=== PATIENT | female | born 1965 | race African-American/Black ===

== ENCOUNTER 2021-09-30 16:08 | Inpatient (IN) ==
[2021-09-30] MEDS ORDERED: ALBUTEROL 2.5 MG/3 ML NEB RESP TX PRN (17:01)
[2021-09-30] MEDS ORDERED: GLUCAGON 1 MG VIAL IM PRN (17:01)
[2021-09-30] MEDS ORDERED: DEXTROSE 50% 25 GM/50 ML SYRINGE IV PRN (17:09)
[2021-09-30 18:07] LABS: Basophils % 0.1 % (0.0-0.8); Hematocrit 40.8 VOL% (35.7-47.0); Hemoglobin 12.2 GM/DL (12.0-16.0); Immature Granulocytes % 1.1 %; Immature Granulocytes Absolute 0.08 #; Lymphocytes # 1.1 10*3/uL (1.4-4.0); Lymphocytes % 14.4 % (21.3-54.2); Mean Corpuscular HGB Conc 29.9 GM/DL (32-36); Mean Corpuscular Volume 86.6 FL (87-102); Mean Platelet Volume 9.7 FL (9.6-12.0); Monocytes % 6.2 % (1.7-12.7); NRBC # 0.28 10*3/uL; Neutrophils % 78.2 % (38.7-73.9); Platelet Count 136 T/CUMM (130-400); Red Blood Count 4.71 MC/CUMM (3.8-5.5); Red Cell Distribution Width 18.6 % (9.3-17.3); White Blood Count 7.6 T/CUMM (4-12)
[2021-09-30 18:16] LABS: Albumin 2.8 G/DL (3.4-5.0); Bilirubin,Total 1.2 MG/DL (0.20-1.00); Calcium 8.1 MG/DL (8.5-10.1); Osmolality,Calculated 286.1 MOS/KG (273-304); Potassium 4.7 MMOL/L (3.5-5.1); Total Protein 7.2 G/DL (6.4-8.2)
[2021-09-30 18:48] LABS: Anisocytosis 2+; Platelet Estimate Adequate; Polychromasia Few
[2021-09-30] MEDS: FAMOTIDINE 20 MG/2 ML VIAL IV SCH (19:25)
[2021-09-30] MEDS: ENOXAPARIN 60 MG/0.6 ML SYRINGE SUBCUT SCH (19:25)
[2021-09-30] MEDS: cefTRIAXone 1,000 MG in SODIUM CHLORIDE 0.9% 100 ML IV SCH (19:25)
[2021-09-30] MEDS: POTASSIUM CHLORIDE 20 MEQ TABLET PO SCH ×2 (19:25→22:50)
[2021-09-30] MEDS: LACTATED RINGERS 1,000 ML IV SCH (19:25)
[2021-09-30] MEDS: MORPHINE 2 MG/1 ML SYRINGE IV PRN (19:44)
[2021-09-30 21:43] LABS: ABG Base Excess 5.7 MMOL/L (-2.5-2.5); ABG HCO3 29.4 MMOL/L (20-26); ABG Oxygen Saturation 88.9 % (95-100); ABG PCO2 55.9 MM HG (35-48); ABG PH 7.374 (7.35-7.45); ABG PO2 65.7 MM HG (80-95); ABG TCO2 29.1 MMOL/L (23-27)
[2021-09-30] MEDS: INSULIN LISPRO 100 UNIT/ML SUBCUT SCH (22:49)
[2021-10-01 00:31] LABS: ABG Base Excess 6.3 MMOL/L (-2.5-2.5); ABG HCO3 29.9 MMOL/L (20-26); ABG Oxygen Saturation 84.4 % (95-100); ABG PCO2 58.5 MM HG (35-48); ABG PH 7.367 (7.35-7.45)
[2021-10-01] MEDS: POTASSIUM CHLORIDE 20 MEQ TABLET PO SCH (02:41)
[2021-10-01] MEDS: LACTATED RINGERS 1,000 ML IV SCH ×2 (04:20→19:09)
[2021-10-01 05:00] LABS: ABG Base Excess 6.1 MMOL/L (-2.5-2.5); ABG HCO3 29.9 MMOL/L (20-26); ABG Oxygen Saturation 95.9 % (95-100); ABG PCO2 57.5 MM HG (35-48); ABG PH 7.369 (7.35-7.45); ABG PO2 92.9 MM HG (80-95); ABG TCO2 29.5 MMOL/L (23-27)
[2021-10-01] MEDS: ENOXAPARIN 60 MG/0.6 ML SYRINGE SUBCUT SCH ×2 (06:10→20:02)
[2021-10-01] MEDS: FAMOTIDINE 20 MG/2 ML VIAL IV SCH ×2 (06:10→20:18)
[2021-10-01] MEDS: INSULIN LISPRO 100 UNIT/ML SUBCUT SCH ×4 (08:49→21:00)
[2021-10-01 09:03] LABS: Basophils % 0.1 % (0.0-0.8); Eosinophils % 0.1 % (0.00-10.9); Immature Granulocytes % 0.8 %; Immature Granulocytes Absolute 0.06 #; Lymphocytes % 11.9 % (21.3-54.2); Mean Corpuscular HGB Conc 29.3 GM/DL (32-36); Mean Corpuscular Volume 88.2 FL (87-102); Monocytes % 5.8 % (1.7-12.7); NRBC # 0.12 10*3/uL; Neutrophils % 81.3 % (38.7-73.9); Platelet Count 143 T/CUMM (130-400); Red Blood Count 4.65 MC/CUMM (3.8-5.5)
[2021-10-01 09:21] LABS: Calcium 8.4 MG/DL (8.5-10.1); Osmolality,Calculated 283.3 MOS/KG (273-304); Potassium 3.4 MMOL/L (3.5-5.1)
[2021-10-01] MEDS: DEXAMETHASONE 4 MG/1 ML VIAL IV SCH (11:00)
[2021-10-01] MEDS: ALPRAZolam 0.5 MG TABLET PO PRN (16:08)
[2021-10-01] MEDS ORDERED: REMDESIVIR 200 MG in SODIUM CHLORIDE 0.9% 210 ML IV ONE (20:00)
[2021-10-01] MEDS: cefTRIAXone 1,000 MG in SODIUM CHLORIDE 0.9% 100 ML IV SCH (20:18)
[2021-10-02 01:46] LABS: ABG Base Excess 6.5 MMOL/L (-2.5-2.5); ABG HCO3 30.3 MMOL/L (20-26); ABG Oxygen Saturation 95.2 % (95-100); ABG PCO2 48.4 MM HG (35-48); ABG PH 7.428 (7.35-7.45); ABG PO2 80.3 MM HG (80-95); ABG TCO2 28.5 MMOL/L (23-27)
[2021-10-02] MEDS ORDERED: LORazepam 2 MG/1 ML VIAL ONE (06:22)
[2021-10-02] MEDS ORDERED: LORazepam 2 MG/1 ML VIAL IV ONE (06:37)
[2021-10-02] MEDS: LACTATED RINGERS 1,000 ML IV SCH ×3 (06:40→18:30)
[2021-10-02] MEDS: ENOXAPARIN 60 MG/0.6 ML SYRINGE SUBCUT SCH ×2 (06:41→18:26)
[2021-10-02] MEDS: FAMOTIDINE 20 MG/2 ML VIAL IV SCH ×2 (06:41→18:00)
[2021-10-02] MEDS ORDERED: hydrALAZINE 20 MG/1 ML VIAL ONE ×2 (07:23→14:33)
[2021-10-02] MEDS ORDERED: hydrALAZINE 20 MG/1 ML VIAL IV STA (07:24)
[2021-10-02] MEDS ORDERED: OLANZapine 5 MG TABLET ONE (08:23)
[2021-10-02] MEDS ORDERED: OLANZapine 5 MG TABLET PO SCH (08:30)
[2021-10-02] MEDS ORDERED: LORazepam 2 MG/1 ML VIAL IV STA (08:53)
[2021-10-02 08:59] LABS: ABG Base Excess 6.1 MMOL/L (-2.5-2.5); ABG HCO3 29.8 MMOL/L (20-26); ABG Oxygen Saturation 89.5 % (95-100); ABG PCO2 52.1 MM HG (35-48); ABG PO2 62.8 MM HG (80-95); ABG TCO2 28.8 MMOL/L (23-27)
[2021-10-02 09:06] LABS: Basophils % 0.2 % (0.0-0.8); Eosinophils % 0.2 % (0.00-10.9); Hematocrit 40.1 VOL% (35.7-47.0); Immature Granulocytes % 0.6 %; Immature Granulocytes Absolute 0.04 #; Lymphocytes # 0.6 10*3/uL (1.4-4.0); Lymphocytes % 9.9 % (21.3-54.2); Mean Corpuscular HGB Conc 28.4 GM/DL (32-36); Mean Corpuscular Volume 88.1 FL (87-102); Monocytes % 5.8 % (1.7-12.7); NRBC # 0.03 10*3/uL; Neutrophils % 83.3 % (38.7-73.9); Platelet Count 122 T/CUMM (130-400); Red Blood Count 4.55 MC/CUMM (3.8-5.5); Red Cell Distribution Width 18.9 % (9.3-17.3); White Blood Count 6.2 T/CUMM (4-12)
[2021-10-02 09:08] LABS: Hemoglobin 11.4 GM/DL (12.0-16.0)
[2021-10-02 09:29] LABS: Albumin 2.4 G/DL (3.4-5.0); Bilirubin,Total 0.6 MG/DL (0.20-1.00); Calcium 8.3 MG/DL (8.5-10.1); Osmolality,Calculated 281.4 MOS/KG (273-304); Potassium 3.2 MMOL/L (3.5-5.1); Total Protein 7.1 G/DL (6.4-8.2)
[2021-10-02] MEDS: DEXAMETHASONE 4 MG/1 ML VIAL IV SCH (09:45)
[2021-10-02] MEDS: INSULIN LISPRO 100 UNIT/ML SUBCUT SCH ×4 (09:50→20:08)
[2021-10-02] MEDS: REMDESIVIR 100 MG in SODIUM CHLORIDE 0.9% 100 ML IV SCH (10:10)
[2021-10-02] MEDS ORDERED: cloNIDine 0.3 MG/24 HR PATCH TRANSDERM SCH (11:05)
[2021-10-02 11:06] LABS: Hypochromia 2+
[2021-10-02 11:07] LABS: Microcytosis 1+; Ovalocytes Few; Platelet Estimate Adequate; Polychromasia Slight
[2021-10-02] MEDS: OLANZapine 10 MG VIAL IM PRN ×2 (12:51→23:38)
[2021-10-02] MEDS: ALBUTEROL INHALER 18 GM INH SCH ×3 (13:18→18:27)
[2021-10-02] MEDS ORDERED: hydrALAZINE 20 MG/1 ML VIAL IV PRN (14:43)
[2021-10-02] MEDS ORDERED: LABETALOL 20 MG/4 ML SYRINGE IV ONE (15:24)
[2021-10-02 16:57] VITALS: BP 205/150
[2021-10-02] MEDS: cefTRIAXone 1,000 MG in SODIUM CHLORIDE 0.9% 100 ML IV SCH (18:05)
[2021-10-02] MEDS: MORPHINE 2 MG/1 ML SYRINGE IV PRN (23:27)
[2021-10-03 06:00] LABS: ABG Base Excess 7.6 MMOL/L (-2.5-2.5); ABG HCO3 31.3 MMOL/L (20-26); ABG Oxygen Saturation 93.7 % (95-100); ABG PCO2 49.8 MM HG (35-48); ABG PH 7.432 (7.35-7.45); ABG PO2 72.6 MM HG (80-95); ABG TCO2 29.6 MMOL/L (23-27)
[2021-10-03] MEDS: MORPHINE 2 MG/1 ML SYRINGE IV PRN (06:05)
[2021-10-03] MEDS: FAMOTIDINE 20 MG/2 ML VIAL IV SCH ×2 (06:07→17:15)
[2021-10-03] MEDS: ALBUTEROL INHALER 18 GM INH SCH ×4 (06:24→19:09)
[2021-10-03] MEDS: ENOXAPARIN 60 MG/0.6 ML SYRINGE SUBCUT SCH ×2 (06:25→17:18)
[2021-10-03 06:31] LABS: Basophils % 0.1 % (0.0-0.8); Eosinophils % 0.3 % (0.00-10.9); Hematocrit 38.4 VOL% (35.7-47.0); Immature Granulocytes % 0.6 %; Immature Granulocytes Absolute 0.04 #; Lymphocytes # 0.8 10*3/uL (1.4-4.0); Mean Corpuscular HGB Conc 29.4 GM/DL (32-36); Mean Corpuscular Volume 86.1 FL (87-102); Monocytes % 7.7 % (1.7-12.7); NRBC # 0.02 10*3/uL; Neutrophils % 79.3 % (38.7-73.9); Platelet Count 131 T/CUMM (130-400); Red Blood Count 4.46 MC/CUMM (3.8-5.5); Red Cell Distribution Width 18.5 % (9.3-17.3); White Blood Count 6.8 T/CUMM (4-12)
[2021-10-03 06:32] LABS: Hemoglobin 11.3 GM/DL (12.0-16.0)
[2021-10-03] MEDS: LACTATED RINGERS 1,000 ML IV SCH ×2 (07:11→16:10)
[2021-10-03] MEDS: INSULIN LISPRO 100 UNIT/ML SUBCUT SCH ×4 (07:20→21:06)
[2021-10-03] MEDS ORDERED: OLANZapine 10 MG VIAL IM PRN (07:31)
[2021-10-03 07:42] LABS: Free T4 (Free Thyroxine) 1.16 NG/DL (0.76-1.46); Thyroid Stimulating Hormone 3.92 uIU/ml (0.358-3.74)
[2021-10-03] MEDS ORDERED: LORazepam 2 MG/1 ML VIAL IV ONE (08:36)
[2021-10-03] MEDS: DEXAMETHASONE 4 MG/1 ML VIAL IV SCH (08:51)
[2021-10-03] MEDS: REMDESIVIR 100 MG in SODIUM CHLORIDE 0.9% 100 ML IV SCH (09:58)
[2021-10-03 11:19] LABS: Albumin 2.3 G/DL (3.4-5.0); Bilirubin,Total 0.6 MG/DL (0.20-1.00); Calcium 8.1 MG/DL (8.5-10.1); Osmolality,Calculated 289.7 MOS/KG (273-304); Potassium 3.1 MMOL/L (3.5-5.1); Total Protein 6.8 G/DL (6.4-8.2)
[2021-10-03] MEDS: POTASSIUM BICARB EFFERVESCENT 20 MEQ TAB.EFF PO PRN ×4 (12:02→17:28)
[2021-10-03] MEDS: cefTRIAXone 1,000 MG in SODIUM CHLORIDE 0.9% 100 ML IV SCH (17:17)
[2021-10-03] MEDS: ALPRAZolam 0.5 MG TABLET PO PRN (22:20)
[2021-10-04] MEDS: MORPHINE 2 MG/1 ML SYRINGE IV PRN (00:45)
[2021-10-04] MEDS: ALBUTEROL INHALER 18 GM INH SCH ×4 (00:54→18:02)
[2021-10-04 03:08] LABS: ABG Base Excess 9.4 MMOL/L (-2.5-2.5); ABG Oxygen Saturation 91.4 % (95-100); ABG PCO2 46.3 MM HG (35-48); ABG PH 7.478 (7.35-7.45); ABG PO2 62.4 MM HG (80-95); ABG TCO2 30.3 MMOL/L (23-27)
[2021-10-04] MEDS ORDERED: DEXMEDETOMIDINE 400 MCG in SODIUM CHLORIDE 0.9% 96 ML IV PRN (03:36)
[2021-10-04] MEDS: ENOXAPARIN 60 MG/0.6 ML SYRINGE SUBCUT SCH ×2 (05:12→17:37)
[2021-10-04] MEDS: FAMOTIDINE 20 MG/2 ML VIAL IV SCH ×2 (05:12→17:28)
[2021-10-04 05:52] LABS: Albumin 2.2 G/DL (3.4-5.0); Bilirubin,Total 0.6 MG/DL (0.20-1.00); Calcium 8.3 MG/DL (8.5-10.1); Potassium 3.2 MMOL/L (3.5-5.1); Total Protein 6.8 G/DL (6.4-8.2)
[2021-10-04 06:04] LABS: Basophils % 0.1 % (0.0-0.8); Eosinophils % 0.4 % (0.00-10.9); Hemoglobin 11.3 GM/DL (12.0-16.0); Immature Granulocytes % 0.7 %; Immature Granulocytes Absolute 0.06 #; Lymphocytes # 0.7 10*3/uL (1.4-4.0); Lymphocytes % 7.8 % (21.3-54.2); Mean Corpuscular HGB Conc 29.7 GM/DL (32-36); Mean Corpuscular Volume 84.8 FL (87-102); Monocytes % 9.5 % (1.7-12.7); NRBC # 0.02 10*3/uL; Neutrophils % 81.5 % (38.7-73.9); Platelet Count 180 T/CUMM (130-400); Red Blood Count 4.48 MC/CUMM (3.8-5.5); Red Cell Distribution Width 18.6 % (9.3-17.3)
[2021-10-04 06:22] LABS: White Blood Count 9.1 T/CUMM (4-12)
[2021-10-04] MEDS ORDERED: FUROSEMIDE 40 MG/4 ML VIAL IV SCH (09:00)
[2021-10-04] MEDS ORDERED: OLANZapine 5 MG TABLET PO PRN (09:30)
[2021-10-04] MEDS ORDERED: LORazepam 2 MG/1 ML VIAL IV PRN (09:31)
[2021-10-04] MEDS: LACTULOSE 20 GM/30 ML UDCUP PO SCH ×3 (09:45→20:53)
[2021-10-04] MEDS: DEXAMETHASONE 4 MG/1 ML VIAL IV SCH (09:45)
[2021-10-04] MEDS: REMDESIVIR 100 MG in SODIUM CHLORIDE 0.9% 100 ML IV SCH (09:58)
[2021-10-04] MEDS: INSULIN LISPRO 100 UNIT/ML SUBCUT SCH ×2 (11:42→18:01)
[2021-10-04] MEDS: ALPRAZolam 0.5 MG TABLET PO PRN (12:41)
[2021-10-04] MEDS: POTASSIUM BICARB EFFERVESCENT 20 MEQ TAB.EFF PO PRN ×4 (12:49→18:43)
[2021-10-04] MEDS ORDERED: LORazepam 2 MG/1 ML VIAL ONE (13:38)
[2021-10-04] MEDS: LACTATED RINGERS 1,000 ML IV SCH (15:20)
[2021-10-04] MEDS: cefTRIAXone 1,000 MG in SODIUM CHLORIDE 0.9% 100 ML IV SCH (17:30)
[2021-10-04] MEDS ORDERED: CALCIUM CHLORIDE 1,000 MG/10 ML SYRINGE IV ONE (21:20)
[2021-10-04] MEDS ORDERED: SODIUM BICARBONATE 10 MEQ/10 ML SYRINGE IV ONE ×2 (21:20→21:35)
[2021-10-04] MEDS ORDERED: EPINEPHrine 1 MG/10 ML SYRINGE ONE ×2 (21:20→21:35)
== END 2021-10-04 21:43 | disposition expired | DRG 177 ==
LOC: N.ED 16:08 → N.EDINP 17:01 → N.CC 10-02 17:17
PROVIDERS: ADMIT Internal Medicine; ATTEND Internal Medicine